=== PATIENT | female | born 1980 | race African-American/Black ===

== ENCOUNTER 2017-04-03 14:37 | Inpatient (IN) | payer OTHER ==
[~2017-04-03] VITALS: Ht 160 cm; Wt 116.1 kg
[~2017-04-03 14:37] MED LIST: ACETAMINOPHEN PO; AMOXICILLIN500 MG PO; CLONIDINE0.1 MG OR; NORVASC5 M1 PO; PRENATAL1 TA1 PO; PROAIR HFA IN; ROBITUSSIN AC10 ML PO; SYMBICORT 80-4.5MCG; TYLENOL 500MG TAB PO
[2017-04-05] VITALS (14 sets, daily range): BP systolic 125–166; BP diastolic 63–90
--- NOTE | 2017-04-05 00:40 | NUR ---
WITH SILVIA 04/12/17. PT ARRIVED ON UNIT FOR SCHEDULED REPEAT WITH B/L TUBAL LIGATION WITH DR TAYLOR AT 0730. PT DENIES ANY PAIN, DENIES CTX, AND DENIES ANY VAGINAL BLEEDING OR LEAKING OF FLUID. ACTIVE MOVEMENT REPORTED. PT REPORTS THAT SHE HAD EMESIS X1 AFTER EATING DINNER. PT WITH C/O TOOTH/GUM PAIN ON UPPER RIGHT JAW AND HAS A CHIPPED UPPER FRONT RIGHT TOOTH. PT DENIES ANY OTHER CONCERNS. EFM IN PLACE. POC AND POST OP EDUCATION REVIEWED. PT VERBALIZED UNDERSTANDING. S/O AT THE BEDSIDE AND CALL LIGHT IN REACH.
[2017-04-05 01:15] LABS: HEMATOCRIT 35.1 % (37.0-47.0); HEMOGLOBIN 11.5 g/dl (12.0-16.0); IMMATURE GRANULOCYTES 0.4 % (0.0-1.0); MEAN CELL VOLUME 88.4 fL CALC (80.0-100.0); MEAN CORPUSCULAR HGB CONC 32.8 g/L CALC (32.0-36.0); NEUT# 4.86 thou/uL (2.00-7.15); RED BLOOD COUNT 3.97 mill/uL (4.20-5.60); RED CELL DISTRI WIDTH 13.8 % (11.5-15.5)
--- NOTE | 2017-04-05 01:24 | NUR ---
PT up twice already to void, states has to go again. NST reactive category II, pt smoked cigarettes prior to arrival; breath smells like smoke.
--- NOTE | 2017-04-05 04:01 | NUR ---
Pt awake, RN asked "don't you feel sleepy?" pt stated "I slept already". Pt up watching TV.
--- NOTE | 2017-04-05 06:15 | NUR ---
Pt's sister on the unit, states her sister called her to come in. Pt VS taken and placed on monitor for NST.
--- NOTE | 2017-04-05 06:31 | NUR ---
NST reactive, FHR average 145 with moderate variability, accelerations and no decelerations: Category I. Occasional mild contraction, but pt asleep snoring when RN went to remove monitor. Baby moving well.
--- NOTE | 2017-04-05 06:50 | NUR ---
REPORT RECEIVED BY WILIAN PEREZ RN. PT IS SLEEPING AND NO S/S OF DISTRESS NOTED. FAMILY MEMBER IN ROOM SLEEPING. MY PRECEPTOR IS LYNDA DESOUZA RN.
--- NOTE | 2017-04-05 07:35 | NUR ---
PT IS RESTING IN BED, ASSESSMENT DONE, AND VS. PT IS STABLE. PT STATED THAT SHE DOES NOT HAVE PAIN. PT IS UPSET THAT HER WILL BE LATER . TOLD PT I WILL GET MORE INFORMATION AND WILL UPDATE HER WITH ANY NEW INFORMATION. PT VERBALIZED UNDERSTANDING.
--- NOTE | 2017-04-05 08:06 | NUR ---
RAJAN HERNANDEZ WENT TO DISCUSSED WITH PT WHY THE IS GOING TO BE LATER. PT VERBALIZED UNDERSTANDING.
--- NOTE | 2017-04-05 08:25 | NUR ---
NST DONE IS REACTIVE, MODERATE VARIABILITY, ACCELS, AND FHR 140. PT STATED NOT FEELING ANY CONTRACTIONS AT THIS TIME. PALPATED NO CONTRACTIONS FELT. GAVE PT A WET WASH CLOTH FOR HER FACE. PT DENIES ANY NEEDS AT THIS TIME. IN ROOM.
--- NOTE | 2017-04-05 10:13 | NUR ---
PT IS RESTING IN BED AND AT BEDSIDE. PT STATED THAT SHE HAS NO PAIN. PT DENIES ANY NEEDS AT THIS TIME.
--- NOTE | 2017-04-05 11:19 | NUR ---
PT HAD X1 CONTRACTION AND PALPATED MILD. THE STRIP WAS MODERATE VARIABILITY, +ACCELS, NO DECELS, AND FHR 150.
--- NOTE | 2017-04-05 11:20 | NUR ---
1105: EFM APPLIED TO PT AND BOLUS STARTED PER ORDERS. 1109: PREOP ROUTINE MEDICATION GIVEN TO PT. PT TOLERATED WELL. 1118: OR STAFF IN ROOM GETTING READY TO TAKE PT DOWN TO OR. 1120: PT TAKEN TO OR VIA STRETCHER BY OR STAFF.
--- NOTE | 2017-04-05 14:30 | NUR ---
PATIENT BROUGHT UP TO UNIT VIA STRETCHER FROM PACU BY PACU NURSE, PATIENT TRANSFERRED INTO BED AND PAULETTE CARE PERFORMED AT THIS TIME. PATIENT DENIES ANY PAIN BUT STATES SHE IS HAVING A LOT OF ITCHING.
--- NOTE | 2017-04-05 14:55 | NUR ---
CALLED DR. TAYLOR AND INFORMED HIM THAT PATIENT CONTINUES TO HAVE ITCHING DESPITE RECEIVING BENADRYL IN PACU. STATES THAT PATIENT MAY HAVE NUBAIN ORDERED AT THIS TIME.
--- NOTE | 2017-04-05 15:05 | NUR ---
NUBAIN ADMINISTERED ORDERED; SEE EMAR. PATIENT DENIES ANY NEEDS AT THIS TIME.
--- NOTE | 2017-04-05 16:50 | NUR ---
1605: ATTEMPTED TO CALL DR. TAYLOR TO INFORM HIM OF PATIENT'S BLOOD PRESSURE. MD IN WITH A PATIENT AT THE OFFICE. 1615: MD STILL IN WITH PATIENT AT THE OFFICE. LEFT A MESSAGE WITH THE BOOM SUPERVISOR TO HAVE DR. TAYLOR CALL ME BACK. 1640: DR. TAYLOR RETURNED CALL; MD WAS INFORMED OF PATIENT'S BLOOD PRESSURES WELL URINE OUTPUT OF 100 ML IN THE PAST TWO HOURS. ORDERS RECEIVED TO BOLUS 400 ML OF LACTATED RINGERS WELL CALL MD IF BLOOD PRESSURES REACH ABOVE 160/100. 1650: IV FLUID BOLUS INITIATED.
--- NOTE | 2017-04-05 17:15 | NUR ---
PATIENT CONTINUES TO DENY ANY PAIN OR NEEDS AT THIS TIME. DAUGHTER BEDSIDE VERY SUPPORTIVE.
--- NOTE | 2017-04-05 18:16 | NUR ---
ICE CHIPS PROVIDED FOR PATIENT. PATIENT DENIES ANY PAIN OR FURTHER NEEDS AT THIS TIME. FAMILY MEMBERS ARE BEDSIDE AND SHE IS HOLDING THE AND BONDING WELL.
--- NOTE | 2017-04-05 19:15 | NUR ---
Inital assessment completed. Pt states pain 3/10 and tolerable, itching has decreased. SCD's in place, reaves draining scar colored urine, IV patent to right hand, low abdominal dressing C/D/I. Pt has family visiting, c/o wanting more to eat. RN stated since she finished her full liquid dinner without n/v, she could advance diet but has possibility of n/v, pt voiced understanding and was given turkey sandwich, ice cream, applesauce, garrison crackers and apple juice. c/o slight nausea, but vomiting absent. Pt sleeping and falling in/out of sleep. VS stable.
--- NOTE | 2017-04-05 19:31 | NUR ---
Reyez draining clear scar colored urine.
--- NOTE | 2017-04-05 19:45 | NUR ---
Pt requested getting up to go see baby in nursery. Loreta care done by RN, panty/pad in place, pt up and walked to nursery with stand-by assistance. Visiting baby about 15-20 min and ambulated back to bed without difficulty.
--- NOTE | 2017-04-05 23:12 | NUR ---
pt requested reaves catheter out and then ambulate to nursery to see baby. Reaves catheter removed with tip intact, 700ml of clear yellow urine emptied. RN explained pt will have about 6 hours from now to void on her own or there is the possibility of needing to be straigh catherized; pt voiced understanding. Loreta pad changed, pt ambulated to nursery with steady gait; presently in nursery bonding with baby.
[2017-04-06 00:10] VITALS: BP 152/74
--- NOTE | 2017-04-06 00:25 | NUR ---
PT back in bed, ambulated on her own without difficulty. Pt states cannot find her inhaler that previously had been in the bed, RN able to locate inhaler in trash; inhaler was packed in its own ziplock bag when found.
--- NOTE | 2017-04-06 01:26 | NUR ---
IV bag changed to LR r/t last bag was LR with pitocin. Pt denies pain at this time, up watching TV. RN encouraged her to sleep before all the visitors come back in the morning, pt states "I slept all day".
--- NOTE | 2017-04-06 03:34 | NUR ---
Pt in nursery visiting with baby.
--- NOTE | 2017-04-06 03:40 | NUR ---
PT used bathroom on her own, voided and did own beena care.
[2017-04-06 04:05] VITALS: BP 131/64
--- NOTE | 2017-04-06 04:20 | NUR ---
pt back to bed from nursery, VS stable, changed into her own clothes and AM CBC drawn r/t pt wanting to sleep. Pain 0/10.
[2017-04-06 04:23] LABS: HEMATOCRIT 34.8 % (37.0-47.0); HEMOGLOBIN 11.3 g/dl (12.0-16.0); IMMATURE GRANULOCYTES 0.2 % (0.0-1.0); MEAN CORPUSCULAR HGB 28.9 pG CALC (26.0-32.0); MEAN CORPUSCULAR HGB CONC 32.5 g/L CALC (32.0-36.0); NEUT# 6.68 thou/uL (2.00-7.15); RED BLOOD COUNT 3.91 mill/uL (4.20-5.60)
--- NOTE | 2017-04-06 06:48 | NUR ---
REPORT RECEIVED BY WILIAN PEREZ RN. MY PRECEPTOR IS LYNDA DESOUZA RN.
[2017-04-06 06:50] VITALS: BP 127/70
--- NOTE | 2017-04-06 06:57 | NUR ---
0650: PT IS RESTING IN BED. ASSESSMENT DONE AND VS ARE STABLE. PT STATED THAT SHE DOES NOT HAVE PAIN AT THIS TIME. DISCUSSED PLAN OF CARE WITH PT. ENCOURAGE PT TO AMBULATE IN THE HALLWAYS. PT VERBALIZED UNDERSTANDING. PT DENIES ANY NEEDS AT THIS TIME. 0657: PT AMBULATED TO THE NURSERY TO SEE AND HOLD.
--- NOTE | 2017-04-06 07:17 | NUR ---
PT IN NURSERY HOLDING INFANT. DR. TAYLOR IN TO SEE PT IN NURSERY. MD DISCUSSED PLAN OF CARE WITH PT. PT VERBALIZED UNDERSTANDING.
--- NOTE | 2017-04-06 07:56 | NUR ---
IV SITE REMOVED AND INTACT. PT TOLERATED WELL. PT DENIES ANY NEEDS AT THIS TIME.
--- NOTE | 2017-04-06 09:52 | NUR ---
PT IS SITTING IN BED HOLDING . PT STATED THAT SHE DOES NOT HAVE PAIN. PT DENIES ANY NEEDS AT THIS TIME.
--- NOTE | 2017-04-06 10:18 | NUR ---
REPORT GIVEN TO Jocelin PETTY RN.
--- NOTE | 2017-04-06 11:08 | NUR ---
PT OOB IN MONTANEZ TALKS ON CELL PHONE, NO REQUESTS AT THIS TIME.
--- NOTE | 2017-04-06 14:00 | NUR ---
PT CARING FOR INFANT W/O PROBLEM. VISITS WITH FAMILY.
[2017-04-06 16:00] VITALS: BP 142/68
--- NOTE | 2017-04-06 16:08 | NUR ---
SITS ON SIDE OF BED, FEEDING . PT DECLINES TO WATCH EDUCATIONAL VIDEOS, THIS IS HER 6TH CHILD.
--- NOTE | 2017-04-06 16:17 | NUR ---
OOB IN ROOM AMBULATING, DECLINES NEED FOR PAIN MED AT THIS TIME.
--- NOTE | 2017-04-06 17:04 | NUR ---
SITS ON SIDE OF BED VISITS WITH FAMILY.
--- NOTE | 2017-04-06 18:04 | NUR ---
PT MEDICATED FOR PAIN WITH LORTAB, SITS ON SIDE OF BED VISITS WITH FAMILY.
--- NOTE | 2017-04-06 18:50 | NUR ---
PT SHOWERED, REMOVED DRESSING, SITS IN BED CARING FOR . VISITS WITH FAMILY.
[2017-04-06 19:15] VITALS: BP 148/73
--- NOTE | 2017-04-06 19:15 | NUR ---
Pt visiting with family. PM assessment completed, VS stable, Pain 0/10 but medicated with Motrin and discussed plan of care to medicate again at 0030 with next vital signs; pt agreed. Heart murmur heard on auscultation, bowel sounds active x 4, low transverse abdominal incision well approximated without redness, swelling or drainage, steri strips dry and intact, beena pad placed @ incision to keep dry from sweat. moderate to light rubra lochia; pt doing own beena care and ambulating well without assistance.
--- NOTE | 2017-04-06 23:19 | NUR ---
RN discussion with pt re: MMR vaccine and Rubella vaccine; RN explained indications for vaccines, pt states "I am not going to get them". RN asked if she wanted to watch any discharge videos since she was still awake, pt stated "no", and that she already knows how to care for herself and babies.
[2017-04-07 00:09] VITALS: BP 164/76
[2017-04-07 00:20] VITALS: BP 142/74
--- NOTE | 2017-04-07 00:30 | NUR ---
Pt given Lortab and Motrin, states pain is zero but "starting to cramp". Pt extremely drowsy, agreed to send baby to nursery for hearing test so she could sleep.
--- NOTE | 2017-04-07 03:17 | NUR ---
Infant in nursery, pt asleep without distress.
--- NOTE | 2017-04-07 04:08 | NUR ---
pt continues to sleep without distress, in nursery.
--- NOTE | 2017-04-07 07:00 | NUR ---
RECEIVED CARE OF PT. @0725 SITTING UP IN BED ON CELL PHONE. ASSESSMENT CHARTED. NO INCREASED SOMNOLENCE OR RESPIRATORY DEPRESSION NOTED. DENIES HEADACHE. RATING PAIN 0/10 AT THIS TIME. PLAN OF CARE REVIEWED. DENIES USING ASTHMA INHALER THIS AM. DR TAYLOR IN @0730, RECEIVED NEW ORDERS. CALL LIGHT WITHIN REACH. @0800 DISCHARGE PLANNING REVIEWED WITH PT. REFUSES TDAP AND MMR IMMUNIZATIONS. INCISION CARE REVIEWED.
[2017-04-07 07:30] VITALS: BP 135/69
[2017-04-07] MEDS ORDERED: LORTAB 7.57.5 MG PO (08:10)
[2017-04-07] MEDS ORDERED: IBUPROFEN600 MG PO (08:10)
--- NOTE | 2017-04-07 09:55 | NUR ---
DR JACOBS IN TO SPEAK WITH PT ABOUT CIRCUMCISION FOR INFANT. PT WITH NO CONCERNS.
--- NOTE | 2017-04-07 12:40 | NUR ---
Discharge instructions given. Patient verbalizes understanding of same. Discharged in stable condition via Wheelchair to Home with significant other. All belongings sent with pt. Pt refused MMR and Tdap immunizations. Pt to call for follow-up appt in [address] Ahmadi. Prescriptions for Motrin and Lortab given.
== END 2017-04-07 12:40 | disposition home or self-care (01) | DRG 765 ==
LOC: OB 04-05 00:16 → MS2 04-05 07:30 → OB 04-07 12:40
PROVIDERS: ADMIT Obstetrics & Gynecology; ATTEND Obstetrics & Gynecology
PROC: 10D00Z1 Extraction of Products of Conception, Low, Open Approach (ICD-10-PCS; principal; 2017-04-05)
PROC: 0UB70ZZ Excision of Bilateral Fallopian Tubes, Open Approach (ICD-10-PCS; 2017-04-05)
DX: O34.211 Maternal care for low transverse scar from previous cesarean delivery (principal); Z68.41 Body mass index [BMI] 40.0-44.9, adult; N85.8 Other specified noninflammatory disorders of uterus; O99.52 Diseases of the respiratory system complicating childbirth; J45.909 Unspecified asthma, uncomplicated; O99.214 Obesity complicating childbirth; E66.9 Obesity, unspecified; Z3A.39 39 weeks gestation of pregnancy; Z37.0 Single live birth
CPT/HCPCS: J0692; J2270